=== PATIENT | male | born 1950 | race Caucasian/White ===

== ENCOUNTER 2016-09-22 07:49 | Day surgery (SDC) | payer BC ==
[~2016-09-22] VITALS: Ht 177.8 cm; Wt 77.1 kg
--- NOTE | ~2016-09-22 | OP ---
PATIENT NAME: JUANA ZUÑIGA MEDICAL RECORD: [id number] :54 LOCATION:D.OPS ADMISSION DATE: SURGEON: ABAD VIDES MD DATE OF OPERATION: 09/22/2016 PREOPERATIVE DIAGNOSES: Hoarseness and left vocal cord lesion. POSTOPERATIVE DIAGNOSES: Hoarseness and left vocal cord lesion. 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 SURGEON: Abad Vides MD ANESTHESIA: General orotracheal. BLOOD LOSS: Less than 1 cc. SPECIMENS: Cyst wall from the left vocal cord. COMPLICATIONS: None. DISPOSITION: Recovery stable. FINDINGS: Small submucosal cyst on anterior third of the left true vocal cord. DESCRIPTION OF PROCEDURE: He was brought to the operating room and placed in supine position, sedated and intubated by anesthesia, 6-1/2 tube. The table was turned 90 degrees. The eyes were taped. Head drapes applied. He was positioned for laryngoscopy. A plastic upper tooth guard was placed. Laryngoscope was inserted and used to evaluate the posterior pharyngeal wall, lateral pharyngeal garcia, hypopharynx, piriforms, postcricoid area, epiglottis and vallecula, and then the cords. No lesions were identified except for the one identified preoperatively on the left cord. This was exposed. It was placed in suspension and the microscope with 400-mm lens was brought in to look at this lesion. It was obviously significantly displacing the medial edge of the mucosal surface of the cord, but under the microscope with the light, I could clearly see that there was a submucosal cyst. The mucosa was grasped with upbiting cup forceps and a small incision was made just anterior to the cyst and then just posterior and then scissors were placed under the mucosa and used to just make a cut right up the superior surface there and expose that cyst. It was then grabbed with cup forceps and peeled off of its base. It did rupture, but the cyst was removed. This allowed the mucosal surface to lay down completely smoothly. There was really no bleeding. Subglottis and upper trachea were normal. The specimen was sent in formalin. The laryngoscope was taken out of suspension and removed. The plastic tooth guard was removed. He was awakened, extubated, and transported to recovery in good condition. No complications. TRANSINT:[id number] Voice Confirmation ID: [id number] DOCUMENT ID: [id number] OPERATIVE REPORT [id number] JUANA ZUÑIGA ERIC MD CC: [id number] DICTATION DATE: 09/22/16 1038 ACCOUNT PROCESSOR: 09/22/16 190 [facility] 09/22/16 [place] [id number] [place] [id number]
--- NOTE | ~2016-09-22 | HP ---
PATIENT: YONI ZUÑIGA MEDICAL RECORD: [id number] ACCOUNT: [id number] LOCATION:[facility] : 54 ADMISSION DATE: 09/22/16 HISTORY AND PHYSICAL EXAMINATION Preoperative History and Physical HISTORY OF PRESENT ILLNESS: Yoni is a 66-year-old male with hoarseness and a cyst on his left true vocal cord, he had a history of excision of vocal cord polyps years ago. He is not smoking. He is being admitted for microsuspension laryngoscopy and excision of this left vocal cord lesion. PAST MEDICAL HISTORY: Includes diabetes, coronary artery disease and prostate cancer. PAST SURGICAL HISTORY: Includes cardiac stents in 2013, bilateral polyps of the vocal cords removed in 2016 and transurethral resection of the prostate. CURRENT MEDICATIONS: Metformin, carvedilol, Coreg, levothyroxine, and aspirin. ALLERGIES: PENICILLIN. PHYSICAL EXAMINATION: GENERAL: He is healthy-appearing, moderately hoarse voice. FACE: Normal, symmetric, no lesions. EYES: Sclerae and conjunctivae are normal. EARS: Canals and TMs are normal. NOSE: No masses, polyps, or drainage. ORAL CAVITY AND OROPHARYNX: Tongue protrudes in midline. Pharynx is normal. NECK: No masses and no adenopathy. CHEST: Clear. CARDIOVASCULAR: Regular rate and rhythm, no murmur. EXTREMITIES: Normal. IMAGING: Laryngoscopy reveals what appears to be a cyst on the left vocal cord about 4-mm long, bulging off the cord interfering with cord occlusion on phonation. IMPRESSION: Hoarseness, left vocal cord lesion with history of excision of bilateral vocal cord polyps, looks like he has got a little irregularity and a cyst that is formed there. He has been admitted for microsuspension laryngoscopy and excision of that cyst. TRANSINT:[id number] Voice Confirmation ID: [id number] DOCUMENT ID: [id number] HISTORY AND PHYSICAL [id number] YONI ZUÑIGA ERIC MD CC: [id number] DICTATION DATE: 09/20/16 1534 CORPORATE CONCIERGE: 09/20/16 1550 PRE [facility] [address] [place] [address]
[~2016-09-22 07:49] MED LIST: ASPIRIN EC81 M1 PO; COREG 3.1253.125 MG PO; FARXIGA10 MG PO; GLUCOVANCE 5/501 TAB PO; LEVOTHYROXINE75 MCG PO; LIPITOR80 MG PO; PLAVIX75 MG PO; SSD20 GM TP
[2016-09-22 08:45] LABS: HEMOGLOBIN 13.1 g/dL (13.5-17.5); MCHC 33.6 g/dL (31.0-37.0); MCV 92.2 fL (80.0-100.0); MEAN PLATELET VOLUME 9.5 fL (7.4-10.4); RBC 4.23 10x6/uL (4.20-6.10); RDW 13.8 % (11.5-14.5); WBC 6.5 10x3/uL (4.8-10.8)
[2016-09-22 08:46] VITALS: BP 110/69; Ht 177.8 cm; Wt 77.1 kg
[2016-09-22 08:59] LABS: ANION GAP 15.5 mmol/L (8-16); CALCIUM 8.9 mg/dL (8.5-10.1); CARBON DIOXIDE 24.2 mmol/L (21.0-32.0); CREATININE - SERUM 1.4 mg/dL (0.6-1.3); POTASSIUM - SERUM 4.7 mmol/L (3.5-5.1)
[2016-09-22 10:44] LABS: APTT 32.8 SECONDS (22.8-39.4); INR 0.9 (0.85-1.17)
--- NOTE | 2016-09-22 15:12 | NUR ---
1250-IV DISCONTINUED, CATHETER INTACT, COTTON BALL AND BANDAID APPLIED. DISCHARGE INSTRUCTIONS GIVEN. ESCORTED VIA WHEELCHAIR TO PERSONAL CAR, LEFT WITH DAUGHTER AT SIDE.
== END 2016-09-22 12:50 | disposition home or self-care (01) ==
LOC: D.OPS 07:49 → D.PAN 08:15 → D.OPS 08:15 → D.PAN 09:00 → D.OPS 09:00 → D.PAN 09:15 → D.OPS 09:30 → D.PAN 09:40 → D.OPS 12:50
PROVIDERS: Anesthesiology
DX: J38.3 Other diseases of vocal cords (principal); E11.9 Type 2 diabetes mellitus without complications; I25.10 Atherosclerotic heart disease of native coronary artery without angina pectoris; Z85.46 Personal history of malignant neoplasm of prostate; Z79.84 Long term (current) use of oral hypoglycemic drugs; Z79.82 Long term (current) use of aspirin; Z79.899 Other long term (current) drug therapy; Z88.0 Allergy status to penicillin; Z01.812 Encounter for preprocedural laboratory examination